=== PATIENT | female | born 1990 | race Two or more races ===

== ENCOUNTER 2018-04-13 19:55 | Emergency (ER) | payer BC, OTHER ==
[2018-04-13 20:32] VITALS: BP 106/58; PULSE 78; TEMP 98.1; BMI 23.6
--- NOTE | 2018-04-13 21:02 | PDOC ---
History of Present Illness - History of Present Illness Initial Comments: This patient is a 27 year old female with PMHx of hypothyroidism (diagnosed 10 years ago), who presents with concerns for pain and lumps on chest, right breast , and right axilla. Patient noticed the pain on her chest 2 weeks ago and states that when she saw her PCP he dx her with costochondritis. She noticed the lump on her right axilla yesterday while showering and thought it was perhaps an inflamed hair follicle so he prescribed her an antibiotic. 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 She states that overall the pain has decreased over time but she comes in today because she is worried that the painful lumps are somehow related to her thyroid issues. Patient noted that she has been taking supplements and in January she had some blood work done in which some of her numbers were out of range including her liver function. She denies any recent injury or strain. Allergies: Maalox, trazodone PCP: Paco Zabala 04/13/18 21:55 <Mayra Daley - Last Filed: 04/13/18 21:54> <Benita Banks - Last Filed: 04/14/18 02:30> - General Chief Complaint: Pain Stated Complaint: LUMPS ON UPPER BODY & NECK Time Seen by Provider: 04/13/18 20:01 Past History <Mayra Daley - Last Filed: 04/13/18 21:54> - Past Medical History COPD: No GI Disorders: Yes (IBS) Psychiatric Problems: Yes (ANXIETY) Thyroid Disease: Yes (HYPERTHYROID) Other medical history: FIBROADENOMA LEFT BREAST - Suicide/Smoking/Psychosocial Hx Smoking History: Never smoked Hx Alcohol Use: Yes (OCCASIONAL) Drug/Substance Use Hx: No <Benita Banks - Last Filed: 04/14/18 02:30> - Past Medical History Allergies/Adverse Reactions: Allergies Allergy/AdvReac Type Severity Reaction Status Date / Time aluminum hydroxide AdvReac Mild Verified 04/13/18 20:02 [From Maalox Maximum Strength] magnesium hydroxide AdvReac Mild Verified 04/13/18 20:02 [From Maalox Maximum Strength] simethicone AdvReac Mild Verified 04/13/18 20:02 [From Maalox Maximum Strength] trazodone AdvReac Mild Verified 04/13/18 20:02 Home Medications: Ambulatory Orders Amoxicillin/Potassium Clav [Augmentin 875-125 Tablet] 1 each PO BID 04/13/18 LORazepam [Ativan] 1.5 mg PO HS 04/13/18 Methimazole [Tapazole -] 15 mg PO DAILY 04/13/18 Metoprolol Succinate [Toprol Xl] 12.5 mg PO DAILY 04/13/18 Sertraline HCl [Zoloft -] 75 mg PO BID 04/13/18 Review of Systems - Review of Systems Comments:: GENERAL/CONSTITUTIONAL: No fever or chills. No weakness. HEAD, EYES, EARS, NOSE AND THROAT: No change in vision. No ear pain or discharge. No sore throat. CARDIOVASCULAR: No chest pain or shortness of breath. RESPIRATORY: No cough, wheezing, or hemoptysis. GASTROINTESTINAL: No nausea, vomiting, diarrhea or constipation. GENITOURINARY: No dysuria, frequency, or change in urination. MUSCULOSKELETAL: No joint or muscle swelling or pain. No neck or back pain. SKIN: +pain and lump in right axilla, right breast, and right chest. No rash NEUROLOGIC: No headache, vertigo, loss of consciousness, or change in strength/ sensation. ENDOCRINE: No increased thirst. No abnormal weight change. HEMATOLOGIC/LYMPHATIC: No anemia, easy bleeding, or history of blood clots. ALLERGIC/IMMUNOLOGIC: No hives or skin allergy. 04/13/18 21:55 <Mayra Daley - Last Filed: 04/13/18 21:54> *Physical Exam - Vital Signs Last Vital Signs Temp Pulse Resp BP Pulse Ox 98.1 F 78 16 106/58 L 99 04/13/18 19:59 04/13/18 19:59 04/13/18 19:59 04/13/18 19:59 04/13/18 19:59 - Physical Exam Comments: GENERAL: Awake, alert, and fully oriented, in no acute distress HEAD: No signs of trauma EYES: PERRLA, EOMI, sclera anicteric, conjunctiva clear ENT: Auricles normal inspection, hearing grossly normal, nares patent, oropharynx clear without exudates. Moist mucosa LUNGS: Breath sounds equal, clear to auscultation bilaterally. No wheezes, and no crackles HEART: Regular rate and rhythm, normal S1 and S2, no murmurs, rubs or gallops CHEST:Tenderness of the second rib at the sternal border with mild edema but no crepitus. ABDOMEN: Soft, nontender, normoactive bowel sounds. No guarding, no rebound. No masses EXTREMITIES: Normal range of motion, no edema. No clubbing or cyanosis. No cords, erythema, or tenderness NEUROLOGICAL: Cranial nerves II through XII grossly intact. Normal speech, normal gait SKIN: Existing firbrinadenoma on left breast 1x2 cm, mildly tender on inner upper quadrant on left breast. Right breast 1x1 cm moderately tender, firm, non flutuant area of the inner upper quadrant. Minimally tender edematous 2x2 cm area of right axilla, non fluctuant, non errythematous, not warm to touch. No other masses palpated in axilla. <Mayra Daley - Last Filed: 04/13/18 21:54> - Vital Signs Last Vital Signs Temp Pulse Resp BP Pulse Ox 98.1 F 78 16 106/58 L 99 04/13/18 19:59 04/13/18 19:59 04/13/18 19:59 04/13/18 19:59 04/13/18 19:59 <Benita Banks - Last Filed: 04/14/18 02:30> Moderate Sedation - Procedure Monitoring Vital Signs: Procedure Monitoring Vital Signs Temperature 98.1 F 04/13/18 19:59 Pulse Rate 78 04/13/18 19:59 Respiratory Rate 16 04/13/18 19:59 Blood Pressure 106/58 L 04/13/18 19:59 O2 Sat by Pulse Oximetry (%) 99 04/13/18 19:59 <Mayra Daley - Last Filed: 04/13/18 21:54> - Procedure Monitoring Vital Signs: Procedure Monitoring Vital Signs Temperature 98.1 F 04/13/18 19:59 Pulse Rate 78 04/13/18 19:59 Respiratory Rate 16 04/13/18 19:59 Blood Pressure 106/58 L 04/13/18 19:59 O2 Sat by Pulse Oximetry (%) 99 04/13/18 19:59 <Beinta Banks - Last Filed: 04/14/18 02:30> Medical Decision Making - Medical Decision Making Documentation has been prepared under my direction and personally reviewed by me in its entirety. I attest that this documented accurately reflects all work, treatment, procedures and medical decision making performed by me. As noted above, this 27-year-old woman with a history of hyperthyroidism presents with history of tender areas of left upper chest, right breast and right axilla. The patient is anxious that these areas are related to her hyperthyroidism. Patient had been seen by her own PMD regarding these new findings and had been started on Augmentin for the right axillary edematous/ mildly tender area. Exam as noted. The left chest tenderness seems most consistent with costochondritis and the right axillary tenderness may be skin structure infection. The right breast induration and mild tenderness (upper inner quadrant) requires follow-up. Although she has a history of left breast fibroadenoma, she has had no follow-up of this mass and no history of mammogram. Referral information for the [facility] breast group given to the patient. She should contact the office within the next 48 hours to arrange for follow-up. Meanwhile, she should continue the Augmentin and applied warm packs as needed to the right axilla. <Benita Banks - Last Filed: 04/14/18 02:30> *DC/Admit/Observation/Transfer - Attestations Scribe Attestion: 04/13/18 22:00 Documentation prepared by Mayra Daley, acting as veterinary medical officer for Benita Banks MD. <Mayra Daley - Last Filed: 04/13/18 21:54> <Benita Banks - Last Filed: 04/14/18 02:30> Diagnosis at time of Disposition: Breast pain, right, Right axillary swelling, Left-sided chest wall pain - Discharge Dispostion Disposition: HOME Condition at time of disposition: Stable - Referrals Referrals: Paco Zabala MD [Primary Care Provider] - Quintin Quintero MD [Staff Physician] - 2 Days - Patient Instructions Printed Discharge Instructions: DI for Breast Mass -- Uncertain Cause Additional Instructions: continue Augmentin as prescribed followup with [facility] - call office on Sunday, 04/15 to arrange followup visit return to ER if pain/swelling worsens - Post Discharge Activity
== END 2018-04-13 21:29 | disposition home or self-care (01) ==
LOC: FER 19:55
DX: N64.4 Mastodynia (principal); R22.31 Localized swelling, mass and lump, right upper limb; R07.89 Other chest pain; E05.90 Thyrotoxicosis, unspecified without thyrotoxic crisis or storm; F32.9 Major depressive disorder, single episode, unspecified; K58.9 Irritable bowel syndrome, unspecified
CPT/HCPCS: 99281-25